=== PATIENT | female | born 1950 | race Caucasian/White ===

== ENCOUNTER 2021-09-11 06:30 | Day surgery (SDC) | payer MEDICARE, BC ==
[~2021-09-11] VITALS: Ht 172.7 cm; Wt 113.6 kg
[~2021-09-11 06:30] MED LIST: ASPIRIN EC81 MG PO; ATORVASTATIN CA40 MG PO; CALCIUM600 MG PO; ELIQUIS5 MG PO; FLECAINIDE ACET50 MG PO; MAGNESIUM PO; MULTIVITAMINS1 EAC8 PO; NORCO 5-325 TA1 EACH PO; SYNTHROID50 MCG PO; TOPROL XL50 MG PO; VITAMIN D350 MC3 PO; ZESTRIL5 MG PO
--- NOTE | 2021-09-11 10:01 | NUR ---
09/11/21 1001 Faith Anderson 0956- PT ARRIVES TO PACU AROUSABLE TO VOICE. PT DROWSY AND FALLS TO SLEEP WHEN NOT BEING TALKED TO. RESP EVEN AND UNLABORED. OXYGEN SAT HIGH 90'S ON 6L VIA MASK.
--- NOTE | 2021-09-11 10:12 | NUR ---
PT ALERT, ORIENTED AND SUPPORTED BY HER DL. PT FEELS AT EASE WITH TODAY, ALL QUESTIONS ASKED ANSWERED. DL WILL REMAIN SURING SURGERY. PT REQUESTED PRAYER, WILL FOLLOW
--- NOTE | 2021-09-11 10:45 | NUR ---
Bedside report received from RN Mary, pt resting safely in bed w/ call light in reach. VSS on RA, pt slightly drowsy from surgery but able to follow commands and answer questions. Pt denies any pain, nausea, or needs at this time. Ron continue to monitor pt closely. Pt denies SOB or trouble wallowing, bedside CPOx in place.
--- NOTE | 2021-09-11 11:45 | NUR ---
PT RESTING IN BED SAFELY W/ CALL LIGHT IN REACH. PT ABLE TO SWALLOW ORAL MEDICATION W/O DIFFICULTY, VSS ON RA. PT DENIES AND PAIN, NAUSEA, SOB, TROUBLE SWALLOWING, OR ANY NEEDS AT THIS TIME
--- NOTE | 2021-09-11 12:45 | NUR ---
PT SBA TO BATHROOM, PT ABLE TO VOID AND IS NOW SITTING UP IN THE CHAIR EATING LUNCH. PT DENIES PAIN, NAUSEA, SOB, OR TROUBLE SWALLOWING. VS REMAIN STABLE ON RA
--- NOTE | 2021-09-11 13:25 | OR ---
[facility] [address] [place], [place] [address] Signed DATE OF OPERATION: 09/11/2021 SURGEON: Riccardo Guillermo MD PREOPERATIVE DIAGNOSES: 1. Right lower pole thyroid nodule, 29 mm, Inglewood category III on FNA. 2. Family history of thyroid cancer. 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 PROCEDURE: 1. Right total thyroid lobectomy with isthmusectomy. 2. Intraoperative pathologic consult. ANESTHESIA: General endotracheal; Gus Hernandez CRNA. INDICATIONS: This 71-year-old white woman has several medical problems including chronic atrial fibrillation and pacemaker in place and is chronically anticoagulated with a thrombin inhibitor. She has a family history of thyroid cancer in the sister. The patient has been evaluated for a right thyroid nodule, which is generally asymptomatic. The nodule in the right lower pole is 29 mm. The patient does take thyroid replacement therapy for hypothyroidism. Radionuclide scan of July 16 showed normal uptake with no cold or hot nodule. I performed ultrasound-guided fine-needle aspiration biopsy, which has shown a [place]glewood category III lesion considered to have a malignancy rated between 10 and 30%. The patient has considered well the factors involved in monitoring the thyroid nodule and wishes to proceed with definitive excision for diagnosis and consideration also for total thyroidectomy should malignancy actually be found. The risks of bleeding, infection, need for additional treatment later, and other unforeseen complications including recurrent laryngeal nerve injury, external laryngeal nerve injury, and so forth were all reviewed with her, she understands and wished to proceed. FINDINGS: In aggregate, the thyroid was rather small. There appeared to be upper pole firmness to nodular tissue as well as a distinct lower pole nodule, which was marked. Frozen Electronically Signed By: RICCARDO GUILLERMO MD 09/11/21 1325 PATIENT NAME: ALLIE MATTHEWS OPERATIVE REPORT DATE OF : 50 REPORT #: [id number] PHYSICIAN: RICCARDO GUILLERMO MD PCP: SAL ESTRADA MD REPORT IS CONFIDENTIAL AND NOT TO BE RELEASED WITHOUT AUTHORIZATION [facility] [address] [place], [place] [address] Signed pathology confirmed follicular lesion unlikely to be malignant. There was a background of thyroiditis noted. Final pathology is pending. Additionally, the right recurrent laryngeal nerve was well identified as was the right parathyroid gland in the lower pole, both of which were well preserved. The upper parathyroid gland was not identified and although not certain to be within the resected specimen, it is a possibility. Trachea itself was normal. The left lobe was not explored. DESCRIPTION OF PROCEDURE: The patient was brought to the operating room, given a general endotracheal anesthetic. Preoperative antibiotic Ancef was given. She has been off her thrombin inhibitor Eliquis for at least four days. Sequential compression device stockings were used. After satisfactory general endotracheal anesthesia, her arms were placed at the side and a shoulder roll placed for mild neck extension. Careful padding of neck, shoulders, and so forth was undertaken. Anterior neck and upper torso were prepared with a chlorhexidine based solution and draped sterilely. A natural skin crease was well identified. An incision was brought from the medial aspect of the sternocleidomastoid muscle bilaterally. Dissection was carried through the dermis and subcutaneous tissue and platysmal layer with electrocautery. Superior and inferior flaps were developed using blunt and electrocautery dissection. Gelpi retractors were placed. The midline strap muscles were incised in the avascular plane longitudinally allowing for elevation of the sternal hyoid and sternal thyroid muscles. Sharp dissection was undertaken laterally to what appeared to be a rather atretic thyroid gland on the right. There was a nodule well palpated in the lower pole, but also firmness and nodularity in the upper pole. Further dissection was undertaken allowing for good identification of thyroidal veins in the midportion. These were secured with 4-0 silk ties and divided. The inferior lobe was dissected free first. Multiple small vessels to the thyroid were similarly isolated and ligated with 4-0 silk ties, some of the larger branches secured additionally with a clip. Further dissection posteriorly allowed for elevation of the thyroid out of the tracheoesophageal groove. An inferior parathyroid gland was identified and at that point, the recurrent laryngeal nerve was not visible. Attention was turned to the upper pole. Individual ligation of superior polar vessels was undertaken, again securing them with 4-0 silk ties and a few of them additionally with small clips. With progressive rotation of the right thyroid to the midline using the subcapsular technique of Espinal laterally, further mobility was undertaken and accomplished safely. Ultimately, the recurrent laryngeal nerve was identified. Special care was taken to avoid injury to it and the area of the ligament of Sunshine was ultimately using blunt dissection and ultimately sharp dissection freeing the lobe to the avascular plane of the pretracheal space. This was then rotated more fully and hemostats applied across the isthmus remnant at the margin of the left Electronically Signed By: RICCARDO GUILLERMO MD 09/11/21 1325 PATIENT NAME: ALLIE MATTHEWS OPERATIVE REPORT DATE OF : 50 REPORT #: [id number] PHYSICIAN: RICCARDO GUILLERMO MD PCP: SAL ESTRADA MD REPORT IS CONFIDENTIAL AND NOT TO BE RELEASED WITHOUT AUTHORIZATION [facility] [address] [place], [place] [address] Signed thyroid lobe. The specimen was excised completely and passed for frozen pathology. The lower pole nodule which was the most dominant was marked with a suture, though there was nodularity in the upper pole as well. The isthmus remnant was secured with a 4-0 silk suture. Irrigation was undertaken. There was no untoward bleeding. Tisseel was applied to the area of the ligament of Sunshine, though there was minimal if any thyroid tissue left in this area. The strap muscles were reapproximated at the midline with interrupted 2-0 Vicryl as was the platysmal layer. The skin was then closed with running subcuticular 4-0 Vicryl. Short Steri-Strips were applied. We waited anticipating for the frozen pathology, which ultimately came at approximately 20 minutes once submitted and was found to show a follicular lesion most likely benign adenoma in the setting of background thyroiditis. An Acticoat dressing was then applied. She was ultimately extubated and transferred to the recovery room in good condition having suffered no complication. Sponge, needle, and instrument counts reported as correct x3. MD SAM Day/KATLIN /[id number] cc: Sal Estrada Copies: ~ Electronically Signed By: RICCARDO GUILLERMO MD 09/11/21 1325 PATIENT NAME: ALLIE MATTHEWS OPERATIVE REPORT DATE OF : 50 REPORT #: [id number] PHYSICIAN: RICCARDO GUILLERMO MD PCP: SAL ESTRADA MD REPORT IS CONFIDENTIAL AND NOT TO BE RELEASED WITHOUT AUTHORIZATION
--- NOTE | 2021-09-11 14:00 | NUR ---
pt sitting up in chair w/ call light in reach, visiting w/ , denies pain, nausea, SOB, or difficulty swallowing. O2 sats 96% on RA.
--- NOTE | 2021-09-11 14:07 | NUR ---
MED REC COMPLETE
--- NOTE | 2021-09-11 14:34 | NUR ---
POST OP VITALS COMPLETED AND WNL. DRESSING C/D/I. PT DENEIS PAIN. AMBULATED FROM CHAIR TO BED. TOLERATED WELL INDEPEDENTLY. AT BEDSIDE. PUDDING PROVIDED PER REQUEST. CALL LIGHT IN REACH.
--- NOTE | 2021-09-11 16:06 | NUR ---
pt called for assistance to the BR, IV unplugged from wall and pt ambulated into BR independently. Pt able to void and is now in bed resting safely w/ call light in reach, O2 sats 95% on RA, pt denies SOB, pain, nausea, or difficulty swallowing.
--- NOTE | 2021-09-11 18:02 | NUR ---
PT SITTING UP IN CHAIR EATING DINNER, IN ROOM. PT DENIES ANY PAIN, NAUSEA, SOB, DIFFICULTY SWALLOWING, OR NEEDS AT THIS TIME. CALL LIGHT IN REACH 02 SATS 94% ON RA.
--- NOTE | 2021-09-11 19:20 | NUR ---
IN ROOM FOR REPORT, PT IS AWAKE SITTING AT THE EDGE OF THE BED. SHE DENIES NEEDS AT THIS TIME, CALL LIGHT IS CLOSE.
--- NOTE | 2021-09-11 19:21 | NUR ---
PATIENT SAID SHE TOOK A HIBICLENS SHOWER BEFORE COMING IN FOR HER SURGERY.
--- NOTE | 2021-09-11 19:45 | NUR ---
in to get vitals, i&os, fresh ice water provided, no further needs at this time
--- NOTE | 2021-09-11 20:19 | NUR ---
IN ROOM TO ASSESS PT AND ADMINISTER MEDICATIONS. PT DENIES PAIN AT THIS TIME AND DENIES NAUSEA. SHE WAS RECENTLY UP TO RESTROOM AND DENIES NEEDS AT THIS TIME.CALL LIGHT IS CLOSE.
--- NOTE | 2021-09-11 23:08 | NUR ---
PT IS RESTING WITH EYES CLOSED, RR IS EVEN AND NONLABORED. CALL LIGHT IS CLOSE, IV IS INUSING FINE AND CPOX WNL ON RA.
--- NOTE | 2021-09-12 00:10 | NUR ---
PT UP TO VOID, VITALS TAKEN, NO FURTHER NEEDS AT THIS TIME, SALTINE CRACKERS PROVIDED
--- NOTE | 2021-09-12 00:30 | NUR ---
PT WAS JUST UP TO USE THE RESTROOM, NEW BAG OF LR INFUSING AT 85MLS/HR. PT DRESSING ON PT'S NECK REMAINS UNCHANGED AND PT DENIES PAIN. CALL LIGHT IS CLOSE AND PT DENIES FURTHER NEEDS.
--- NOTE | 2021-09-12 01:35 | NUR ---
IV WAS BEEPING IT IS NOW INFUSING FINE. DRESSING IS CDI AND PT DENIES PAIN. PT DENIES NEEDS AND CALL LIGHT IS CLOSE.
--- NOTE | 2021-09-12 02:00 | NUR ---
PT CALLED, ASSISTED PT WITH UNPLUGGING IV POLE AND CPOX SO PT CAN USE THE BR, PT WILL CALL WHEN BACK TO BED/PLUGGED IN
--- NOTE | 2021-09-12 02:27 | NUR ---
PT IS BACK IN BED AFTER USING THE RESTROOM. SCDS, AND CPOX ARE BACK ON AND IV IS INFUSING FINE. CALL LIGHT IS CLOSE AND PT DENIES NEEDS.
--- NOTE | 2021-09-12 03:30 | NUR ---
PT UP TO VOID, BACK TO BED, NO FURTHER NEEDS AT THIS TIME
--- NOTE | 2021-09-12 04:49 | NUR ---
PT IS RESTING WITH EYES CLOSED, RR IS EVEN AND NONLABORED. CALL LIGHT IS CLOSE.
--- NOTE | 2021-09-12 05:45 | NUR ---
IN ROOM TO ADMINISTER MEDICATIONS, PT DENIES NEEDS AT THIS TIME. CALL LIGHT IS CLOSE AND IV IS INFUSING FINE. VS TAKEN AND I &O'S ENTERED.
--- NOTE | 2021-09-12 07:17 | EKG ---
[facility] [address] [facility] [place] [address] Signed Atrial-paced rhythm with prolonged AV conduction Left anterior fascicular block Left ventricular hypertrophy with QRS widening Abnormal ECG No previous ECGs available Confirmed by STSA SMITH MD ([id number]) on 09/12/2021 7:16:49 AM Electronically Signed By: STAS SMITH MD 09/12/21 0717 PATIENT NAME: ALLIE MATTHEWS [facility] Electrocardiogram DATE OF : 50 PHYSICIAN: STAS SMITH MD REPORT #: [id number] REPORT IS CONFIDENTIAL AND NOT TO BE RELEASED WITHOUT AUTHORIZATION
--- NOTE | 2021-09-12 07:27 | NUR ---
REPORT RECEIVED FROM DEYANIRA LEUNG. PT RESTING IN BED, AWAKE AND ALERT. PT REPORTS 3/10 DISCOMFORT IN HER THROAT AND NECK. DENIES TROUBLE SWALLOWING, INCREASED COUGH OR ANY NUMBNESS OR TINGLING IN HANDS OR FEET. PT DENIES NEED FOR PAIN MEDICATION AT THIS TIME. NO ADDITIONAL REQUESTS OR COMPLAINTS. CALL LIGHT WITHIN REACH. BED RAILS UP.
--- NOTE | 2021-09-12 09:51 | NUR ---
MORNING ASSESSMENT AND MEDICATIONS DUE. PT REPORTS / "DISCOMFORT" IN NECK AND THROAT, DENIES NEED FOR PAIN MEDIATION AT THIS TIME. PT DENIES NAUSEA. PT ALERT AND ORIENTED. PT DENIES ANY NUMBNESS AND TINGLING IN HANDS OR FEET. STRONG PLANTAR AND DORSI FLEXION NOTED. PT DENIES ANY FEELSING OF WEAKNESS. LUNG SOUNDS CLEAR. HEART TONES REGULAR. DRESSING TO ANTERIOR NECK C/D/I WITH NO DRAINAGE NOTED. WELL INTACT. DR. GUILLERMO TO BEDSIDE TO REVIEW DISCHRAGE PLAN WITH PT. PT AVISED TO REMOVEOUTER ACTICOAT DRESSING TOMORROW MORNING, LEAVING STERI STRIPS INTACT. PT VERBALIZES UNDERSTANDING. EDUCATION DONE WITH PT REGARDING S/S TO WATCH FOR RELATED TO BOTH THYROID AND PARATHYROID. PT ABLE TO REPEAT BACK INFORMATION AND VERBALIZE UNDERSTANDING OF WHEN TO NOTIFY THE DOCTOR. IV DC'D PER PROTOCOL BY DEYANIRA STRANGE, GAUZE AND TAPE APPLIED, TIP INTACT. PT DENIES ADDITIONAL REQUESTS OR COMPLAINTS. VITAL SIGN STABLE. CALL LIGHT WITHIN REACH. AT BEDSIDE.
--- NOTE | 2021-09-12 10:00 | NUR ---
Spouse will assist her as needed and drive her for errands and appts. Pt does not use any DME. 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 Denies any financial issues. Pt plans on dc to home today with assist from spouse.
[2021-09-12] MEDS ORDERED: ACETAMINOPHEN500 MG PO (10:24)
--- NOTE | 2021-09-12 11:06 | NUR ---
PT READY FOR DISCHARGE. PT DRESSES SELF, NO ASSISTANCE NEEDED. VITAL SIGNS STABLE. IV PREVIOUSLY DC'D. DICHARGE INSTRUCTIONS REVIEWED WITH PT AND . PT AND VERBALIZE UNDERSANDING OF INSTRUCTIONS, MEDICATIONS, BANDAGE REMOVAL, WHEN TO NOTIFIY THE DOCTOR, AND FOLLOW UP INSTRUCTIONS. PHARMACIST TO BEDSIDE TO REVIEW MEDICATIONS WITH PT. PT STATES HER QUESTIONS HAVE BEEN ANSWERED. PT WHEELED FROM MED/SURG TO MEET AT FRONT DOOR. NO ADDITIONAL REQUESTS OR CONCERNS.
--- NOTE | 2021-09-12 12:01 | NUR ---
CONNECTED WITH PT AND AT DC. PT SEEMS EXCITED, EXPRESSED HIS APPRECIATION FOR CARE PT HAS RECEIVED. GAVE BLESSING, WILL FOLLOW NEEDED.
--- NOTE | 2021-09-12 12:42 | PATH ---
[facility] [address] [facility] [place] [address] Signed SPECIMEN(S): A RIGHT THYROID NODULE WITH ISTHMUS SPECIMEN SOURCE: A. RIGHT THYROID NODULE WITH ISTHMUS CLINICAL HISTORY: Right thyroid nodule FROZEN SECTION DIAGNOSIS: A. Right thyroid nodule with isthmus:Follicular lesion with lymphocytic thyroiditis. (Dr. Hilton, 09/11/2021, 0951) Location of frozen procedure: [facility] Frozen section diagnoses called to Dr. Katz at 0951. AC (under the direct supervision of a pathologist) The Gross Description was prepared using a voice recognition system. The report was reviewed for accuracy; however, sound-alike word errors, addition and/or deletions may occur. If there is any question about this report, please contact Client Services. 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 BRP:em:C2NR MICROSCOPIC EXAMINATION: Histologic sections of all submitted blocks are examined by light microscopy. These findings, together with the gross examination, support the pathologic diagnosis. GROSS DESCRIPTION: The specimen, labeled "CA, A," and designated on the requisition "right thyroid nodule with isthmus," is received fresh for frozen section diagnosis and consists of a right thyroid lobe (4.8 x 3.5 x 0.8 cm) oriented with a stitch marking "offending nodule." The specimen was inked black serially sectioned from superior to inferior into nine slices, and a frozen section was performed. The cut surface is pink yellow-quiroga and nodular. The frozen nodule measures 1.4 cm in greatest dimension. The specimen is submitted entirely as follows: (A1) frozen section remnant (slice three) (A2) slice is one and two PATIENT NAME: ALLIE MATTHEWS PATHOLOGY DATE OF : 50 REPORT #: [id number] PHYSICIAN: LAVONNE PATHOLOGY PCP: CHELSIE ESTRADA MD REPORT IS CONFIDENTIAL AND NOT TO BE RELEASED WITHOUT AUTHORIZATION [place] [address] Signed (A3-A4) slice four, bisected (A5) slice five (A6) slice six (A7-A8) slice seven, bisected (A 9-A10) slice eight, bisected (A11) slice nine PERFORMING LABORATORY: Frozen section was performed at [facility], [address] [place] [address]. The technical component was performed by [facility], [address] [place] [address] (Under Seal Operator: Camilla Worrell MD; CLIA# [id number]). [facility], [address] [place] [address] (CLIA# [id number]). Diagnostician: Nick Hilton MD Pathologist Electronically Signed 09/12/2021 Copies: ~ PATIENT NAME: ALLIE MATTHEWS PATHOLOGY DATE OF : 50 REPORT #: [id number] PHYSICIAN: LAVONNE ZAVALA PCP: CHELSIE ESTRADA MD REPORT IS CONFIDENTIAL AND NOT TO BE RELEASED WITHOUT AUTHORIZATION
== END 2021-09-12 11:10 | disposition home or self-care (01) ==
LOC: DS 06:30 → MS 06:30 → DS 06:45 → MS 10:30 → DS 09-12 11:10
PROVIDERS: ATTEND Surgery
PROC: 0GTH0ZZ Resection of Right Thyroid Gland Lobe, Open Approach (ICD-10-PCS; principal; 2021-09-11 06:45)
DX: E04.2 Nontoxic multinodular goiter (principal); E06.3 Autoimmune thyroiditis; I48.91 Unspecified atrial fibrillation; I10 Essential (primary) hypertension; E03.9 Hypothyroidism, unspecified; E66.01 Morbid (severe) obesity due to excess calories; Z68.39 Body mass index [BMI] 39.0-39.9, adult; Z80.8 Family history of malignant neoplasm of other organs or systems; Z88.2 Allergy status to sulfonamides
CPT/HCPCS: 00320; 93005; 93010; J0131; J0330; J0690; J1100; J1644; J1885; J2001; J2405; J2704; J3010; J3475; J7121

== ENCOUNTER 2023-05-06 09:55 | Day surgery (SDC) | payer MEDICARE, BC ==
[2023-04-29 09:34] VITALS: BP 139/80
[~2023-05-06] VITALS: Ht 172.7 cm; Wt 113.6 kg
[~2023-05-06 09:55] MED LIST changes: +ACETAMINOPHEN500 MG PO
[2023-05-06] MEDS ORDERED: HYDROCHLOROTH12.5 MG PO (10:16)
[2023-05-06] MEDS ORDERED: SYNTHROID75 MCG PO (10:17)
[2023-05-06 10:19] VITALS: BP 144/83
--- NOTE | 2023-05-06 13:39 | NUR ---
PT IN IMAGING, STARTING HER PROCEDURE. CONNECTED WITH PTS' . HE IS HEADING TO IN HOUSE MASS. GAVE ENCOURAGEMENT WILL FOLLOW
--- NOTE | 2023-05-06 14:24 | NUR ---
05/06/23 1424 Lisa Pierce 1419-PATIENT ARRIVED TO PACU ON 10L MASK RR EVEN PLACED ON 6L MASK RR EVEN. PATIENT REACTIVE TO VERBAL STIMULI TURNS HEAD AND MOVES UPPER EXTREMITIES EYES CLOSED NOT FOLLOWING COMMANDS. INCISION SITE CDI TO LEFT SIDE. APACED. IVF INFUSING 1424-PATIENT AROUSING TO VERBAL SITMULI KEEPING EYES CLOSED. PLACED ON RA RR EVEN 100%
[2023-05-06] MEDS ORDERED: IBUPROFEN600 MG PO (14:41)
[2023-05-06] MEDS ORDERED: OXYCODON-ACETA1 EAC2 PO (14:42)
[2023-05-06 14:58] VITALS: BP 138/69
--- NOTE | 2023-05-06 15:08 | NUR ---
PT ARRIVES TO DAY SURGERY ROOM #5. REPORT RECEIVED. PT'S BROUGHT BACK TO THE BEDSIDE. PT IS ORIENTED. DROWSY. PT REPORTS 6/10 PAIN IN HER LEFT BREAST AND WOULD LIKE SOMETHING FOR PAIN. PT PROVIDED ICE WATER, CRACKERS, AND JELL-O PER HER REQUEST. PT DENIES ANY FURTHER NEEDS. BED IN THE LOWEST POSITION, BED RAIL UP X1, CALL LIGHT PROVIDED.
[2023-05-06 15:57] VITALS: BP 143/78
--- NOTE | 2023-05-06 16:06 | NUR ---
LE 1555 PATIENT GIVEN PRN MOTRIN. PATIENT PAIN IS A 4/10 PAIN BUT WOULD LIKE PAIN MEDICINE. PATIENT DENIES FEELING NAUSEATED. PATIENT ALERT AND ORIENTED. PATIENT BREATHING EQUAL AND UNLABORED. OXYGEN SATURATIONS ABOVE 90% ON ROOM AIR. PATIENT SURGICAL DRESSING CLEAN, DRY AND INTACT. PATIENT IVF INFUSING. SCD'S ON. PATIENT HEAD OF BED ELEVATED. CALL LIGHT WITHIN REACH NO FUTHER NEEDS. NO QUESTIONS AT THIS TIME.
--- NOTE | 2023-05-06 16:30 | NUR ---
LE 1630 PATIENT ABLE TO AMBULATE TO RESTROOM. PATIENT VOIDED CLEAR AND YELLOW URINE. PATIENT BACK TO ROOM. PATIENT PAIN IS A 2/10. PATIENT WAITING FOR ED CONTI [employer] CONSULTANT.
[2023-05-06 16:50] VITALS: BP 155/88
--- NOTE | 2023-05-06 17:11 | NUR ---
LE 1650 PATIENT MET WITH ED CONTI. PATIENT HAS MET DISCHARGE CRITERIA. IV D/C'D WNL. DISCHARGE INSTRUCTIONS GIVEN AND UNDERSTOOD. NO QUESTIONS AT THIS TIME. PATIENT DRESSED SELF AND TOLERATED IT WELL. PATIENT WHEELED OUT OF FACILITY TO PRIVATE AUTO. NO FUTHER NEEDS. PATIENT WITH .
--- NOTE | 2023-05-07 19:01 | OR ---
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 PROCEDURES: 1. Left sentinel lymph node injection with methylene blue dye. 2. Left deep axillary lymph node biopsy (4 lymph nodes excised, 3 of them sentinel nodes). 3. Left needle localized partial mastectomy upper outer quadrant of breast. ANESTHESIA: General endotracheal, Ky Blandon CRNA and Riccardo Tabor CRNA. INDICATION: This 72-year-old white woman is a patient of Dr. Chavez. She was diagnosed by image guided biopsy to have an upper outer quadrant of left infiltrating ductal carcinoma, considered grade 2. 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 ER and VA receptors were positive. HER-2/sea was negative. She additionally had suspicious calcifications of the right breast which underwent image guided biopsy showing no evidence of malignancy. After reviewing her options of management for left her breast cancer, she opts for breast conservation approach to include excision of the mass as well as sentinel lymph node biopsy, possible axillary dissection and postoperative radiation therapy. There remains to be seen whether chemotherapy would be recommended based on lymph node status. Notably, she has no evidence of metastatic disease, no sign of regional adenopathy or other issue. FINDINGS: Good uptake of radionuclide to the sentinel lymph nodes was noted. Surprisingly poor uptake of blue dye, however. Four axillary lymph nodes were excised, 3 of which were sentinel nodes based on radionuclide uptake, another incidental node excised had no such uptake. Electronically Signed By: RICCARDO GUILLERMO MD 05/07/23 190 PATIENT NAME: ALLIE MATTHEWS OPERATIVE REPORT DATE OF : 50 REPORT #: [id number] PHYSICIAN: RICCARDO GUILLERMO MD PCP: SUMMER CHAVEZ MD REPORT IS CONFIDENTIAL AND NOT TO BE RELEASED WITHOUT AUTHORIZATION [facility] [address] [place], [place] [address] Signed The breast problem itself was in the extreme upper outer aspect, not far from the axilla actually. Wire localization allowed for good visualization and excision of this mass. Specimen radiograph interpreted by Dr. Hilton confirmed wide resection of the mass. Notably, the biopsy cavity of the breast was marked with clips for future reference for radiation therapy. DESCRIPTION OF PROCEDURE: The patient was received from the radiology suite with the wire emanating from the upper outer aspect of the left breast. Radionuclide injection had been undertaken as well. She was given a general endotracheal anesthetic and 1 mL of methylene blue dye was injected in the subepithelial space in the upper outer aspect for sentinel lymph node identification in addition to the radionuclide. Arborization of lymphatics was noted promptly. She received preoperative antibiotic Ancef and sequential compression device stockings were used as well. The left breast and axilla and arm were prepared with a Betadine spray solution and draped sterilely. Interrogation of the left axilla with C-Trak probe showed an area of intense radionuclide uptake. A small transverse incision was made there. Dissection was carried through the dermis with sharp dissection and blunt electrocautery dissection. Meticulous care was taken traversing the subcutaneous fat to the axillary tissue. I saw no arborization of methylene blue dye lymphatics. Re-application of the probe for the area of intense uptake and a small lymph node was concordant to that, which was excised as sentinel lymph node #1. It was confirmed to have high uptake of radionuclide but no dye. Additional evaluation showed a small cluster of lymphatic tissue, which was excised and a few clips were applied as well. This showed intense uptake of radionuclide and sentinel lymph nodes #2 and #3 and an incidental lymph node having no uptake concurrently excised. Additional evaluation of the axilla did not show much if any radionuclide uptake from that point forward. The depth of the wound was packed with a laparotomy pack. Hemostasis had been assured with hemoclips as well as 2-0 Vicryl suture as necessary. Irrigation was undertaken with sterile water and the wound once again packed with plain gauze. Plans were then made for definitive excision of the breast mass. Wire emanating from the superior lateral aspect. An area of good cosmetic benefit including an axillary skin crease was chosen for incision. The breast was incised there and dissection carried through the dermis and a bit of the parenchyma with electrocautery. The wire was delivered through the wound and an Allis clamp applied to the parenchyma. Wide resection was undertaken with electrocautery with meticulous care to maintain a single plane and to widely excise the mass. This was taken down easily to the pectoralis fascia. Wide resection was undertaken and there was no palpable remaining abnormality in the depth of the wound. Palpation of the specimen did show a hard small mass which was concordant to the lesion in question. Electrocautery was used for hemostasis. Prior to explantation of the specimen, it was oriented and a silk suture used to blanca Electronically Signed By: RICCARDO GUILLERMO MD 05/07/23 1901 PATIENT NAME: ALLIE MATTHEWS OPERATIVE REPORT DATE OF : 50 REPORT #: [id number] PHYSICIAN: RICCARDO GUILLERMO MD PCP: SUMMER CHAVEZ MD REPORT IS CONFIDENTIAL AND NOT TO BE RELEASED WITHOUT AUTHORIZATION [facility] [address] [place], [place] [address] Signed the superior and lateral aspects of the specimen. The wound was packed with gauze after securing hemostasis with electrocautery and suture. Re-examination of the axilla was undertaken showing no sign of bleeding. By this point, specimen radiograph report returned confirming the lesion widely resected in the specimen. The axilla was then closed with interrupted 2-0 Vicryl in the deeper layer and a running subcuticular 3-0 Vicryl for the skin. Examination of the depths of the partial mastectomy showed good hemostasis. The surrounding cavity was marked with clips for future reference for radiation therapy. The breast parenchyma was reapproximated with interrupted 2-0 Vicryl and the skin closed with running subcuticular 3-0 Vicryl. Steri-Strips were applied to each site as was an Acticoat dressing. The patient was ultimately extubated and transferred to the recovery room in good condition having suffered no complication. Sponge, needle, and instrument counts were reported as correct x3. MD SAM Day/KATLIN /[id number] cc: Dr. Chavez Copies: ~ Electronically Signed By: RICCARDO GUILLERMO MD 05/07/23 1901 PATIENT NAME: ALLIE MATTHEWS OPERATIVE REPORT DATE OF : 50 REPORT #: [id number] PHYSICIAN: RICCARDO GUILLERMO MD PCP: SUMMER CHAVEZ MD REPORT IS CONFIDENTIAL AND NOT TO BE RELEASED WITHOUT AUTHORIZATION
--- NOTE | 2023-05-10 14:06 | PATH ---
[facility] [address] [facility] [address] [place], [place] [address] Signed SPECIMEN(S): A SENTINEL LYMPH NODE 1 SPECIMEN(S): B SENTINEL LYMPH NODE 2 AND 3 SPECIMEN(S): C LEFT BREAST SPECIMEN SOURCE: A. SENTINEL LYMPH NODE 1 B. SENTINEL LYMPH NODE 2 AND 3 C. LEFT BREAST CLINICAL HISTORY: Invasive ductal carcinoma, left breast. Lumpectomy; short stitch superior, long stitch lateral. Specimen Time to Fixation- 05/06/2023 1:46:00 PM FINAL PATHOLOGIC DIAGNOSIS: A. Lymph node, sentinel #1, excision: - One lymph node, negative for metastatic carcinoma (0/1). B. Lymph nodes, sentinel #2 and #3, excision: - Two lymph nodes, negative for metastatic carcinoma (0/2). C. Breast, left, lumpectomy: - Invasive ductal carcinoma with the following features: - Histologic type: Invasive carcinoma of no special type (ductal). - Histologic grade: - Glandular differentiation: Score 3. - Nuclear pleomorphism: Score 2. - Mitotic rate: Score 1. - Overall grade: 2/3 (total score 6/9). - Tumor size: 4 mm (microscopic measurement). - Ductal carcinoma in situ: Present, papillary and cribriform type, low nuclear grade, without necrosis. - Negative for extensive intraductal component. - Lymph-vascular invasion: Not identified. - Microcalcifications: Not identified. - Treatment effect in the breast: No known presurgical therapy. - Margins: - Margin status for invasive carcinoma: All margins negative for invasive carcinoma. - Distance from invasive carcinoma to closest margin: Invasive carcinoma is greater than 2 mm from all margins. - Margin status for DCIS: All margins negative for DCIS. PATIENT NAME: ALLIE MATTHEWS PATHOLOGY DATE OF : 50 REPORT #: [id number] PHYSICIAN: LAVONNE PATHOLOGY PCP: SUMMER CHAVEZ MD REPORT IS CONFIDENTIAL AND NOT TO BE RELEASED WITHOUT AUTHORIZATION [facility] [address] [place], [place] [address] Signed - Distance from DCIS to closest margin: DCIS is greater than 2 mm from all margins. - Regional lymph nodes (includes parts A and B): All regional lymph nodes negative for tumor. - Total number of lymph nodes examined: 3. - Number of sentinel nodes examined: 3. - Ancillary studies: Please refer to studies previously performed (accession # [id number]) which were reported as ER positive, MI positive, HER-2 negative by IHC (score 0). - Additional pathologic findings: Biopsy site changes. - Pathologic stage classification: pT1a pN0(sn). COMMENT: For parts A and B, immunohistochemical stains for AE1/AE3 are performed and support the above interpretation. As part of [facility]' Quality Improvement Program, this case was reviewed by another member of our pathology staff. BRP:[id number] MICROSCOPIC EXAMINATION: Histologic sections of all submitted blocks are examined by light microscopy. These findings, together with the gross examination, support the pathologic diagnosis. GROSS DESCRIPTION: A. The specimen, labeled and designated "Courtney Tomy," and designated on the requisition "sentinel node #1," is received in formalin and consists of one yellow-quiroga to pink possible lymph node (2.1 x 1.3 x 0.8 cm). The specimen is serially sectioned and submitted entirely in cassette (A1). B. The specimen, labeled and designated "Alex Matthews," and designated on the requisition "sentinel nodes #2 and #3 marked with suture, additional nodes not marked," is received in formalin and consists of a portion of yellow-quiroga, lobulated fatty tissue (6.0 x 4.0 x 1.6 cm) with two marked quiroga-pink possible lymph nodes (3.4 and 3.5 cm in greatest dimension). Remaining fat is palpated, and no other possible lymph nodes identified. All possible lymph nodes are serially sectioned and submitted entirely. Cassette Summary: (B1-B3) One possible lymph node, serially sectioned (B4-B6) One possible lymph node, serially sectioned PATIENT NAME: ALLIE MATTHEWS PATHOLOGY DATE OF : 50 REPORT #: [id number] PHYSICIAN: LAVONNE ZAVALA PCP: SUMMER CHAVEZ MD REPORT IS CONFIDENTIAL AND NOT TO BE RELEASED WITHOUT AUTHORIZATION [facility] [address] [place], [place] [address] Signed C. The specimen, labeled and designated "Leoncio Matthews," and designated on the requisition "breast tissue, left, short stitch superior, long stitch lateral," is received in formalin and consists of an oriented portion of adipose tissue (69 g, 8.0 cm superior to inferior, 6.0 cm medial to lateral, 2.9 cm anterior to posterior). There is a localization wire entering through the superior lateral aspect of the specimen. The specimen is inked as follows: Blue= Superior Green = Inferior Yellow = Anterior Black = Posterior Red = Medial [place] = Lateral Specimen serially sectioned from inferior to superior into thirteen slices to reveal the pink-quiroga to red-brown, firm, ill-defined lesion (1.5 x 1.5 x 1.0 cm) in slices 4 and 5. The tip of the wire is located in slice 4 within the lesion is located 0.2 cm from the anterior margin, 1.8 cm in the inferior margin, 2.0 cm from the lateral margin, 2.1 cm from the posterior margin, 2.2 cm from the medial margin, and 3.9 cm from the superior margin. The lesion contains a vision clip. The remaining cut surface shows yellow-quiroga fatty tissue. The lesion is submitted entirely (gross photo taken). Chainstitch Binder sections are submitted. Cassette Summary: (C1) Slice 1, inferior margin, perpendicular sections (C2) Slice 3 (C3-C6) Slice 4 with lesion (C5 not submitted) AC (C7-C11) Slice 5, entirely, with lesion (C12) Slice 6 (C13) Slice 11 (C14) Slice 13, superior margin, perpendicular sections Cold ischemic time: Cannot be calculated The tissue was fixed in formalin for 32 hours AC (under the direct supervision of a pathologist) The Gross Description was prepared using a voice recognition system. The report was reviewed for accuracy; however, sound-alike word errors, addition and/or deletions may occur. If there is any question about this report, please contact Client Services. ADDITIONAL NOTES: PATIENT NAME: ALLIE MATTHEWS PATHOLOGY DATE OF : 50 REPORT #: [id number] PHYSICIAN: LAVONNE ZAVALA PCP: SUMMER CHAVEZ MD REPORT IS CONFIDENTIAL AND NOT TO BE RELEASED WITHOUT AUTHORIZATION [facility] [address] [place] [address] Signed Immunohistochemical and/or in situ hybridization studies were performed on this case with the appropriate positive controls that react as expected. This test was developed and its performance characteristics determined by [facility]. It has not been cleared or approved by the U.S. Food and Drug Administration. The FDA has determined that such clearance or approval is not necessary. This test is used for clinical purposes. It should not be regarded as investigational or for research. [facility] is certified under the Clinical Laboratory Improvement Amendments of 1988 (CLIA) as qualified to perform high complexity clinical laboratory testing. This assay has not been validated for specimens that have been decalcified. PERFORMING LABORATORY: The technical component was performed by [facility], [address] [place] [address] (CLIA# [id number]). Professional interpretation was performed by [facility], [address] [place] [address] (CLIA# [id number]). Diagnostician: Nick Hilton MD Pathologist Electronically Signed 05/10/2023 Copies: ~ PATIENT NAME: ALLIE MATTHEWS PATHOLOGY DATE OF : 50 REPORT #: [id number] PHYSICIAN: LAVONNE ZAVALA PCP: SUMMER CHAVEZ MD REPORT IS CONFIDENTIAL AND NOT TO BE RELEASED WITHOUT AUTHORIZATION
== END 2023-05-06 16:50 | disposition home or self-care (01) ==
LOC: DS 09:55 → MAM 11:00 → DS 16:50
PROVIDERS: ATTEND Surgery
PROC: 0HBU0ZZ Excision of Left Breast, Open Approach (ICD-10-PCS; principal; 2023-05-06 13:30)
PROC: 07B60ZX Excision of Left Axillary Lymphatic, Open Approach, Diagnostic (ICD-10-PCS; 2023-05-06 13:30)
DX: C50.412 Malignant neoplasm of upper-outer quadrant of left female breast (principal); Z17.0 Estrogen receptor positive status [ER+]; Z80.3 Family history of malignant neoplasm of breast; I48.91 Unspecified atrial fibrillation; E78.5 Hyperlipidemia, unspecified; I10 Essential (primary) hypertension; Z95.0 Presence of cardiac pacemaker; E66.01 Morbid (severe) obesity due to excess calories; Z88.5 Allergy status to narcotic agent; Z79.01 Long term (current) use of anticoagulants; Z79.899 Other long term (current) drug therapy
CPT/HCPCS: 00400; 19281; 38792; 76098; A9270; A9541; J0690; J1100; J1644; J2001; J2405; J2704; J3010; J3490; J7121; Q9968